=== PATIENT | female | born 1965 | race Two or more races ===

== ENCOUNTER 2021-03-02 23:40 | Emergency (ER) | payer MEDICAID ==
[~2021-03-02] VITALS: Ht 152.4 cm; Wt 98.9 kg
[2021-03-03 00:17] LABS: Basophils # (auto) 0.1 10 ^3/uL (0-0.2); Basophils % (auto) 0.9 % (0.0-2.0); Eosinophils # (auto) 0 10 ^3/uL (0-0.8); Eosinophils % (auto) 0.1 % (0.0-7.0); Hematocrit 36.2 % (36.0-46.0); Hemoglobin 12.1 g/dL (12.2-16.2); Lymphocytes # (auto) 1.2 10 ^3/uL (0.4-5.4); Lymphocytes % (auto) 17.4 % (10.0-50.0); Mean Corpuscular Hemoglobin 28.4 pg (28.0-32.0); Mean Corpuscular Hgb Conc. 33.3 g/dL (32.0-36.0); Mean Corpuscular Volume 85.3 fL (80.0-100.0); Monocytes # (auto) 0.2 10 ^3/uL (0-1.3); Monocytes % (auto) 3.6 % (0.0-12.0); Neutrophils # (auto) 5.3 10 ^3/uL (1.6-8.6); Nucleated Red Blood Cells % 0.1 %; Red Blood Cells 4.24 10^6/uL (4.0-5.20); Red Cell Distribution Width 13.8 % (11.8-14.3); White Blood Cell 6.8 10^3/uL (4.4-10.8)
[2021-03-03 00:31] LABS: Alanine Aminotransferase 23 U/L (13-56); Albumin 3.6 g/dL (3.4-5.0); Anion Gap 9 (5-15); Aspartate Aminotransferase 10 U/L (15-37); BUN/Creatinine Ratio 20.3; Blood Urea Nitrogen 16 mg/dL (7-18); Calcium 8.7 mg/dL (8.5-10.1); Carbon Dioxide 25 mmol/L (21-32); Chloride 104 mmol/L (98-107); GFR African American 97 mL/min; GFR Non-African American 80 mL/min; Glucose 179 mg/dL (74-106); Magnesium 2.2 mg/dL (1.6-2.6); Potassium 3.3 mmol/L (3.5-5.1); Sodium 138 mmol/L (136-145)
[2021-03-03 00:36] LABS: Alkaline Phosphatase 111 U/L (45-117); Bilirubin, Total 0.2 mg/dL (0.2-1.0)
[2021-03-03] MEDS ORDERED: KETOROLAC TROMETH 60MG/2ML VIAL IM ONE (05:30)
[2021-03-03 07:06] VITALS: BP 148/82
== END 2021-03-03 07:13 | disposition home or self-care (01) ==
LOC: ER 23:40
DX: R07.89 Other chest pain (principal); I11.0 Hypertensive heart disease with heart failure; I50.9 Heart failure, unspecified; J45.909 Unspecified asthma, uncomplicated; Z90.49 Acquired absence of other specified parts of digestive tract; Z90.89 Acquired absence of other organs
CPT/HCPCS: 36415; 71045; 80053; 83735; 83880; 84484; 85025; 85379; 93005

== ENCOUNTER → 2021-11-13 | Outpatient (CLI) | payer MEDICAID | END | disposition home or self-care (01) | LOC: XYW 15:22 | PROVIDERS: ATTEND Internal Medicine | DX: I07.1 Rheumatic tricuspid insufficiency (principal); I10 Essential (primary) hypertension | CPT/HCPCS: 93306 ==

== ENCOUNTER → 2021-11-27 | Outpatient (CLI) | payer MEDICAID ==
[~2021-11-27] VITALS: Ht 144.8 cm; Wt 99.3 kg
[~2021-11-27] MED LIST: ADENOSINE 83 MG in GIVE UN-DILUTED 0 ML IV STA
[2021-11-27 08:37] VITALS: BP 121/68
== END | disposition home or self-care (01) ==
LOC: XYW 07:07
PROVIDERS: ATTEND Internal Medicine
DX: R07.9 Chest pain, unspecified (principal); I10 Essential (primary) hypertension; E11.9 Type 2 diabetes mellitus without complications; M19.90 Unspecified osteoarthritis, unspecified site
CPT/HCPCS: 78452; 93017; A9500; J0153

== ENCOUNTER → 2021-12-24 | Outpatient (CLI) | payer MEDICAID ==
[2021-12-24 16:35] LABS: Urine Bacteria NONE SEEN /hpf (None Seen); Urine Blood Negative /uL (Negative); Urine Specific Gravity 1.007 (1.001-1.035); Urine WBC 4 /hpf (0 - 5)
== END | disposition home or self-care (01) ==
LOC: LAB 15:51
PROVIDERS: ATTEND Urology
DX: N32.81 Overactive bladder (principal)
CPT/HCPCS: 81001; 87086

== ENCOUNTER → 2022-03-04 | Outpatient (CLI) | payer MEDICAID ==
[~2022-03-04] MED LIST changes: -ADENOSINE 83 MG in GIVE UN-DILUTED 0 ML IV STA; +BACL10TA PO; +DICY10CA12 PO; +DILT30TA PO; +FLUT1SPR5; +GABA-339 PO; +HYDR25TA4 PO; +METF-370 PO; +METO-289 PO; +OME20T PO; +SOLI10TA7 PO; +SOLI5SUS PO; +TOPI100T68 PO
[2022-03-04 11:52] LABS: Basophils # (auto) 0 10 ^3/uL (0-0.2); Basophils % (auto) 0.8 % (0.0-2.0); Eosinophils # (auto) 0.1 10 ^3/uL (0-0.8); Eosinophils % (auto) 1.9 % (0.0-7.0); Hematocrit 38.4 % (36.0-46.0); Hemoglobin 12.1 g/dL (12.2-16.2); Lymphocytes # (auto) 1.3 10 ^3/uL (0.4-5.4); Lymphocytes % (auto) 27.7 % (10.0-50.0); Mean Corpuscular Hemoglobin 27.1 pg (28.0-32.0); Mean Corpuscular Hgb Conc. 31.6 g/dL (32.0-36.0); Mean Corpuscular Volume 85.8 fL (80.0-100.0); Monocytes # (auto) 0.5 10 ^3/uL (0-1.3); Monocytes % (auto) 9.9 % (0.0-12.0); Neutrophils # (auto) 2.9 10 ^3/uL (1.6-8.6); Neutrophils % (auto) 59.7 % (37.0-80.0); Red Blood Cells 4.47 10^6/uL (4.0-5.20); Red Cell Distribution Width 14.5 % (11.8-14.3); White Blood Cell 4.8 10^3/uL (4.4-10.8)
[2022-03-04 12:21] LABS: Albumin 3.9 g/dL (3.4-5.0); Calcium 9.2 mg/dL (8.5-10.1); Potassium 3.1 mmol/L (3.5-5.1)
[2022-03-04 12:24] LABS: BUN/Creatinine Ratio 10.2; INR 0.97 (0.9-1.15); Partial Thromboplastin Time 29.5 sec (24.6-33.4)
[2022-03-04 12:26] LABS: Bilirubin, Total 0.3 mg/dL (0.2-1.0); Total Protein 7.8 g/dL (6.4-8.2)
== END | disposition home or self-care (01) ==
LOC: LAB 10:28
PROVIDERS: ATTEND Internal Medicine
DX: R00.2 Palpitations (principal); I47.1 Supraventricular tachycardia; R06.2 Wheezing
CPT/HCPCS: 36415; 80053; 85025; 85610; 85730

== ENCOUNTER 2022-03-06 07:00 | Day surgery (SDC) | payer MEDICAID ==
[~2022-03-06] VITALS: Ht 152.4 cm; Wt 97.5 kg
[~2022-03-06 07:00] MED LIST changes: -SOLI5SUS PO
[2022-03-06] MEDS ORDERED: LIDOCAINE 2%HCL (LOCAL ANESTH.) INJ 10ml MDV ONE (07:40)
[2022-03-06] MEDS ORDERED: IODIXANOL 320MG/ML 100ML BTL IV ONE ×3 (07:40→08:55)
[2022-03-06] MEDS ORDERED: VERAPAMIL 2.5MG/ML INJ 2ML VIAL IV ONE (08:39)
[2022-03-06] MEDS ORDERED: ANGIOMAX 250 MG VIAL IV ONE (08:39)
[2022-03-06] MEDS ORDERED: HEPARIN SODIUM (PORCINE) 5000 UNITS/ML 1ML VIAL ONE (08:39)
[2022-03-06] MEDS ORDERED: MIDAZOLAM HCL 2MG/2ML 2ml VIAL (1mg/ml) ONE ×2 (08:40→09:20)
[2022-03-06] MEDS ORDERED: SODIUM CHL 0.9% 0 ML ONE (08:40)
[2022-03-06] MEDS ORDERED: fentaNYL CITRATE 100 MCG/2 ML VL ONE ×2 (08:40→09:19)
== END 2022-03-06 11:51 | disposition home or self-care (01) ==
LOC: CATH 07:00
PROVIDERS: ATTEND Internal Medicine
DX: R94.39 Abnormal result of other cardiovascular function study (principal); I25.10 Atherosclerotic heart disease of native coronary artery without angina pectoris; Z20.822 Contact with and (suspected) exposure to COVID-19
CPT/HCPCS: 93458; C1769; C1887; C1894; J1644; J2001; J2250; J3010; J7030; Q9967; U0003; 99152; 99153

== ENCOUNTER 2022-11-05 11:00 | Outpatient (CLI) | payer MEDICAID ==
[~2022-11-05 11:00] MED LIST changes: +SOLI10TA39 PO; -SOLI10TA7 PO
[2022-11-05 12:02] LABS: Basophils # (auto) 0 10 ^3/uL (0-0.2); Basophils % (auto) 0.7 % (0.0-2.0); Eosinophils # (auto) 0.1 10 ^3/uL (0-0.8); Eosinophils % (auto) 2.3 % (0.0-7.0); Hematocrit 35.9 % (36.0-46.0); Hemoglobin 11.9 g/dL (12.2-16.2); Lymphocytes # (auto) 1.4 10 ^3/uL (0.4-5.4); Lymphocytes % (auto) 31.3 % (10.0-50.0); Mean Corpuscular Hemoglobin 28.4 pg (28.0-32.0); Mean Corpuscular Hgb Conc. 33.1 g/dL (32.0-36.0); Mean Corpuscular Volume 85.8 fL (80.0-100.0); Monocytes # (auto) 0.4 10 ^3/uL (0-1.3); Monocytes % (auto) 9.5 % (0.0-12.0); Neutrophils # (auto) 2.5 10 ^3/uL (1.6-8.6); Neutrophils % (auto) 56.2 % (37.0-80.0); Red Blood Cells 4.18 10^6/uL (4.0-5.20); Red Cell Distribution Width 13.4 % (11.8-14.3); White Blood Cell 4.5 10^3/uL (4.4-10.8)
[2022-11-05 12:38] LABS: INR 0.93 (0.9-1.15); Partial Thromboplastin Time 27.9 sec (24.6-33.4)
[2022-11-05 13:05] LABS: BUN/Creatinine Ratio 31.4 (10.0-20.0)
[2022-11-05 13:06] LABS: Albumin 3.7 g/dL (3.4-5.0); Calcium 9.3 mg/dL (8.5-10.1)
[2022-11-05 13:09] LABS: Bilirubin, Total 0.2 mg/dL (0.2-1.0)
[2022-11-05 13:16] LABS: Potassium 2.9 mmol/L (3.5-5.1)
== END 2022-11-05 11:50 | disposition home or self-care (01) ==
LOC: LAB 11:00 → EDSTATUS 11-07 08:15
PROVIDERS: ATTEND Urology
DX: Z01.812 Encounter for preprocedural laboratory examination (principal); N39.3 Stress incontinence (female) (male)
CPT/HCPCS: 36415; 80053; 85025; 85610; 85730

== ENCOUNTER → 2022-11-15 | Outpatient (CLI) | payer MEDICAID ==
[~2022-11-15] MED LIST changes: -SOLI10TA39 PO; +SOLI10TA7 PO
[2022-11-15 09:24] LABS: Basophils # (auto) 0 10 ^3/uL (0-0.2); Basophils % (auto) 0.7 % (0.0-2.0); Eosinophils # (auto) 0.1 10 ^3/uL (0-0.8); Eosinophils % (auto) 3.1 % (0.0-7.0); Hemoglobin 11.8 g/dL (12.2-16.2); Lymphocytes # (auto) 1.1 10 ^3/uL (0.4-5.4); Lymphocytes % (auto) 32.2 % (10.0-50.0); Mean Corpuscular Hemoglobin 28.3 pg (28.0-32.0); Mean Corpuscular Hgb Conc. 32.7 g/dL (32.0-36.0); Mean Corpuscular Volume 86.8 fL (80.0-100.0); Monocytes # (auto) 0.4 10 ^3/uL (0-1.3); Monocytes % (auto) 12.4 % (0.0-12.0); Neutrophils # (auto) 1.8 10 ^3/uL (1.6-8.6); Neutrophils % (auto) 51.6 % (37.0-80.0); Nucleated Red Blood Cells % 0.2 %; Red Blood Cells 4.15 10^6/uL (4.0-5.20); Red Cell Distribution Width 13.6 % (11.8-14.3); White Blood Cell 3.5 10^3/uL (4.4-10.8)
== END | disposition home or self-care (01) ==
LOC: LAB 09:02
PROVIDERS: ATTEND Orthopaedic Surgery
DX: Z01.812 Encounter for preprocedural laboratory examination (principal)
CPT/HCPCS: 36415; 85025; 85652; 86141

== ENCOUNTER → 2023-11-06 | Outpatient (CLI) | payer MEDICAID ==
[~2023-11-06] MED LIST changes: +ADENOSINE 90 MG/30 ML INJ IV ONE; +DICY-89 PO; -DICY10CA12 PO; +SOLI10TA39 PO; -SOLI10TA7 PO
== END | disposition home or self-care (01) ==
LOC: Rad HDHVI 10:03
PROVIDERS: ATTEND Internal Medicine Cardiovascular Disease
DX: I08.1 Rheumatic disorders of both mitral and tricuspid valves (principal); I10 Essential (primary) hypertension
CPT/HCPCS: 93306

== ENCOUNTER → 2023-11-07 | Outpatient (CLI) | payer MEDICAID ==
[~2023-11-07] VITALS: Ht 152.4 cm; Wt 90.7 kg
[~2023-11-07] MED LIST changes: +ADENOSINE 76 MG in GIVE UN-DILUTED 0 ML IV ONE; -ADENOSINE 90 MG/30 ML INJ IV ONE; +ERY05OO OP; +ONDANSETRON HCL 4 MG/2 ML VIAL ONE
== END | disposition home or self-care (01) ==
LOC: Rad HDHVI 08:47
PROVIDERS: ATTEND Internal Medicine Cardiovascular Disease
DX: I10 Essential (primary) hypertension (principal); E11.42 Type 2 diabetes mellitus with diabetic polyneuropathy; R42 Dizziness and giddiness
CPT/HCPCS: 78452; 93005; 96374; 96375; A9500; J0153; J2405

== ENCOUNTER 2023-11-12 12:28 | Emergency (ER) | payer MEDICAID ==
[~2023-11-12] VITALS: Ht 152.4 cm; Wt 90.0 kg
[~2023-11-12 12:28] MED LIST changes: -ADENOSINE 76 MG in GIVE UN-DILUTED 0 ML IV ONE; -ERY05OO OP; -ONDANSETRON HCL 4 MG/2 ML VIAL ONE
[2023-11-12 13:13] VITALS: BP 154/84; PULSE 61; RESP 14; TEMP 97.9; O2SAT 99
[2023-11-12] MEDS: FLUORESCEIN SOD OPTH TEST STRIP LEFTEYE ONE (13:51)
[2023-11-12] MEDS ORDERED: ERY05OO OP (14:18)
== END 2023-11-12 14:38 | disposition home or self-care (01) ==
LOC: ER 12:28
DX: H57.8A2 Foreign body sensation, left eye (principal); I11.0 Hypertensive heart disease with heart failure; I50.9 Heart failure, unspecified; J45.909 Unspecified asthma, uncomplicated; Z90.49 Acquired absence of other specified parts of digestive tract

== ENCOUNTER 2023-12-29 18:12 | Emergency (ER) | payer MEDICAID ==
[~2023-12-29] VITALS: Ht 144.8 cm; Wt 88.8 kg
[~2023-12-29 18:12] MED LIST changes: +ERY05OO OP
[2023-12-29 18:43] LABS: Basophils # (auto) 0 10 ^3/uL (0-0.2); Basophils % (auto) 0.3 % (0.0-2.0); Eosinophils # (auto) 0 10 ^3/uL (0-0.8); Eosinophils % (auto) 0.3 % (0.0-7.0); Hematocrit 36.5 % (36.0-46.0); Lymphocytes # (auto) 1.7 10 ^3/uL (0.4-5.4); Lymphocytes % (auto) 28.1 % (10.0-50.0); Mean Corpuscular Hemoglobin 28.2 pg (28.0-32.0); Mean Corpuscular Volume 85.5 fL (80.0-100.0); Monocytes # (auto) 0.5 10 ^3/uL (0-1.3); Monocytes % (auto) 7.5 % (0.0-12.0); Neutrophils # (auto) 3.9 10 ^3/uL (1.6-8.6); Neutrophils % (auto) 63.8 % (37.0-80.0); Nucleated Red Blood Cells % 0.1 %; Red Blood Cells 4.26 10^6/uL (4.0-5.20); Red Cell Distribution Width 13.6 % (11.8-14.3); White Blood Cell 6.2 10^3/uL (4.4-10.8)
[2023-12-29 18:59] LABS: Partial Thromboplastin Time 26.2 SEC (24.5-34.5); Prothrombin Time 10.6 sec (9.3-11.8)
[2023-12-29 19:00] LABS: Alanine Aminotransferase 21 U/L (7-40); Albumin 4.5 g/dL (3.2-4.8); Alkaline Phosphatase 86 U/L (46-116); Anion Gap 8 (5-15); Aspartate Aminotransferase 9 U/L (13-40); BUN/Creatinine Ratio 14.3 (10.0-20.0); Blood Urea Nitrogen 15 mg/dL (9-23); Calcium 9.9 mg/dL (8.5-10.1); Carbon Dioxide 26 mmol/L (20-30); Chloride 105 mmol/L (98-107); Glucose 145 mg/dL (74-106); Potassium 3.6 mmol/L (3.5-5.1); Sodium 139 mmol/L (136-145)
[2023-12-29 19:01] LABS: Bilirubin, Total 0.3 mg/dL (0.2-1.0); Total Protein 7.2 g/dL (5.7-8.2)
[2023-12-29 20:05] LABS: Urine Bacteria None Seen /hpf (None Seen)
[2023-12-29 20:17] VITALS: BP 126/78; PULSE 74; RESP 16; O2SAT 98
[2023-12-29 20:39] LABS: Urine Blood Negative /uL (Negative); Urine Clarity Clear (Clear); Urine Color Colorless (Yellow); Urine Protein, UAD Negative (Negative); Urine Specific Gravity 1.006 (1.001-1.035); Urine Urobilinogen Normal (Negative); Urine WBC 1 /hpf (0 - 5); Urine pH 6.5 (5.0-9.0)
== END 2023-12-29 21:07 | disposition home or self-care (01) ==
LOC: ER 18:12
DX: R07.89 Other chest pain (principal); E78.5 Hyperlipidemia, unspecified; E11.9 Type 2 diabetes mellitus without complications; J45.909 Unspecified asthma, uncomplicated; I11.0 Hypertensive heart disease with heart failure; I50.9 Heart failure, unspecified; Z90.49 Acquired absence of other specified parts of digestive tract
CPT/HCPCS: 36415; 71045; 80053; 81001; 83880; 84484; 85025; 85379; 85610; 85730; 93005

== ENCOUNTER → 2024-03-10 | Outpatient (CLI) | payer MEDICAID ==
[2024-03-10 08:58] LABS: Urine Bacteria None Seen /hpf (None Seen)
[2024-03-10 09:13] LABS: Urine Amorphous Crystal FEW /hpf (None Seen); Urine Blood Negative /uL (Negative); Urine Clarity Turbid (Clear); Urine Color Colorless (Yellow); Urine Protein, UAD Negative (Negative); Urine Specific Gravity 1.015 (1.001-1.035); Urine Urobilinogen Normal (Negative); Urine WBC 2 /hpf (0 - 5); Urine pH 7.5 (5.0-9.0)
[2024-03-10 09:14] LABS: Basophils # (auto) 0 10 ^3/uL (0-0.2); Basophils % (auto) 0.8 % (0.0-2.0); Eosinophils # (auto) 0.2 10 ^3/uL (0-0.8); Eosinophils % (auto) 4.8 % (0.0-7.0); Hematocrit 36.1 % (36.0-46.0); Hemoglobin 11.9 g/dL (12.2-16.2); Lymphocytes # (auto) 1.2 10 ^3/uL (0.4-5.4); Lymphocytes % (auto) 30.9 % (10.0-50.0); Mean Corpuscular Hemoglobin 28.6 pg (28.0-32.0); Mean Corpuscular Hgb Conc. 32.9 g/dL (32.0-36.0); Monocytes # (auto) 0.4 10 ^3/uL (0-1.3); Monocytes % (auto) 11.1 % (0.0-12.0); Neutrophils # (auto) 2.1 10 ^3/uL (1.6-8.6); Neutrophils % (auto) 52.4 % (37.0-80.0); Platelet Count (auto) 331 10^3/uL (140-450); Red Blood Cells 4.15 10^6/uL (4.0-5.20); Red Cell Distribution Width 15.1 % (11.8-14.3); White Blood Cell 3.9 10^3/uL (4.4-10.8)
[2024-03-10 09:36] LABS: Creatinine, Urine 97.73 mg/dL (30.0-125.0)
[2024-03-10 09:38] LABS: Micro Albumin < 3.0 mg/L (<30.0)
[2024-03-10 09:39] LABS: Alanine Aminotransferase 19 U/L (7-40); Albumin 4.1 g/dL (3.2-4.8); Alkaline Phosphatase 85 U/L (46-116); Anion Gap 5 (5-15); Aspartate Aminotransferase 20 U/L (13-40); Blood Urea Nitrogen 7 mg/dL (9-23); Calcium 9.6 mg/dL (8.7-10.4); Carbon Dioxide 26 mmol/L (20-30); Chloride 109 mmol/L (98-107); Cholesterol 153 mg/dL (< 200); Glucose 87 mg/dL (74-106); HDL Cholesterol 55 mg/dL (40-59); LDL Cholesterol 77 mg/dL (< 100); Potassium 4.3 mmol/L (3.5-5.1); Sodium 140 mmol/L (136-145); Triglycerides 98 mg/dL (< 150)
[2024-03-10 09:40] LABS: Bilirubin, Total 0.5 mg/dL (0.2-1.0)
== END | disposition home or self-care (01) ==
LOC: LAB 08:44
PROVIDERS: ATTEND Student in an Organized Health Care Education/Training Program
DX: I10 Essential (primary) hypertension (principal); E11.9 Type 2 diabetes mellitus without complications
CPT/HCPCS: 36415; 80053; 80061; 81001; 82043; 82306; 82570; 83036; 84443; 85025

== ENCOUNTER → 2024-05-27 | Outpatient (CLI) | payer MEDICAID ==
[2024-05-27 06:27] LABS: Urine Bacteria None Seen /hpf (None Seen)
[2024-05-27 06:30] LABS: Basophils # (auto) 0 10 ^3/uL (0-0.2); Basophils % (auto) 0.5 % (0.0-2.0); Eosinophils # (auto) 0.2 10 ^3/uL (0-0.8); Eosinophils % (auto) 4.9 % (0.0-7.0); Hematocrit 37.4 % (36.0-46.0); Lymphocytes # (auto) 1.7 10 ^3/uL (0.4-5.4); Lymphocytes % (auto) 41.9 % (10.0-50.0); Mean Corpuscular Hemoglobin 28.4 pg (28.0-32.0); Mean Corpuscular Hgb Conc. 32.2 g/dL (32.0-36.0); Mean Corpuscular Volume 88.2 fL (80.0-100.0); Monocytes # (auto) 0.4 10 ^3/uL (0-1.3); Monocytes % (auto) 10.9 % (0.0-12.0); Neutrophils # (auto) 1.6 10 ^3/uL (1.6-8.6); Neutrophils % (auto) 41.8 % (37.0-80.0); Nucleated Red Blood Cells % 0.2 %; Platelet Count (auto) 316 10^3/uL (140-450); Red Blood Cells 4.24 10^6/uL (4.0-5.20); Red Cell Distribution Width 14.3 % (11.8-14.3); White Blood Cell 3.9 10^3/uL (4.4-10.8)
[2024-05-27 06:40] LABS: Urine Blood Negative /uL (Negative); Urine Clarity Clear (Clear); Urine Color Colorless (Yellow); Urine Protein, UAD Negative (Negative); Urine Specific Gravity 1.009 (1.001-1.035); Urine Urobilinogen Normal (Negative); Urine WBC <1 /hpf (0 - 5); Urine pH 6.5 (5.0-9.0)
[2024-05-27 06:52] LABS: Alanine Aminotransferase 17 U/L (7-40); Albumin 4.3 g/dL (3.2-4.8); Alkaline Phosphatase 84 U/L (46-116); Anion Gap 3 (5-15); Aspartate Aminotransferase 17 U/L (13-40); BUN/Creatinine Ratio 16.9 (10.0-20.0); Blood Urea Nitrogen 12 mg/dL (9-23); Calcium 9.4 mg/dL (8.7-10.4); Carbon Dioxide 29 mmol/L (20-31); Chloride 107 mmol/L (98-107); Glucose 85 mg/dL (74-106); Potassium 4.2 mmol/L (3.5-5.1); Sodium 139 mmol/L (136-145)
[2024-05-27 06:53] LABS: Bilirubin, Total 0.5 mg/dL (0.2-1.0)
== END | disposition home or self-care (01) ==
LOC: LAB 06:15
PROVIDERS: ATTEND Student in an Organized Health Care Education/Training Program
DX: E11.9 Type 2 diabetes mellitus without complications (principal); I10 Essential (primary) hypertension
CPT/HCPCS: 36415; 80053; 81001; 83036; 84443; 85025

== ENCOUNTER 2024-11-29 08:38 | Emergency (ER) | payer MEDICAID ==
[~2024-11-29] VITALS: Ht 152.4 cm; Wt 216.4 kg
--- NOTE | 2024-11-29 09:38 | ED.PDOC ---
GI ASSESSMENT HPI Comments 59 year old female presents to the ED with a chief complaint of abdominal pain onset 4 days. Patient states she has been experiencing LT flank pain as well as diffused abdominal pain for the past 4 days. She is a poor historian. States she ran into a wall 4 days, believes it can be cause of flank pain. PMHx PE, CHF, HTN, DM, arthritis. Denies shortness of breath, chest pain, nausea, vomiting, diarrhea, headache, dizziness, dysuria, hematuria. No other symptoms or modifying factors present at this time. Chief Complaint: Abdominal Pain Time Seen by MD: 09:13 Reviewed Notes: Medications, Allergies Allergies: Coded Allergies: NO KNOWN ALLERGIES (Unverified , 03/04/22) PER PATIENT Home Meds Active Scripts Erythromycin (Erythromycin) 5 Mg/Gm Oin, 1 APPLIC OP QID for 10 Days, #5 GRAMS 0 Refills Prov:MICHAEL AMAYA BROACHER 11/12/23 Reported Medications Solifenacin Succinate (Solifenacin Succinate) 10 Mg Tab, 10 MG PO DAILY for HYPERACTIVE BLADDER, TAB 03/04/22 Topiramate (Topiramate) 100 Mg Tab, 100 MG PO BID for MIGRAINE for 30 Days, MG 03/04/22 Omeprazole (Omeprazole) 20 Mg Cap, 40 MG PO DAILY, CAP 03/04/22 Metoprolol Succinate (Metoprolol Succinate Er) 50 Mg Tab, 50 MG PO DAILY for 30 Days, MG 03/04/22 Metformin Hydrochloride (Metformin Hcl) 500 Mg Tab, 500 MG PO DAILY for 30 Days, MG 03/04/22 Hydrochlorothiazide (Hydrochlorothiazide) 25 Mg Tab, 50 MG PO DAILY, MG 03/04/22 Gabapentin (Gabapentin) 600 Mg Tab, 600 MG PO TID, MG 03/04/22 Fluticasone Propionate (Nasal) (Flonase Allergy Relief) 50 Mcg/Act Spr, 50 MCG NA DAILY, SPRAY 03/04/22 Diltiazem Hcl (Diltiazem Hcl) 30 Mg Tab, 30 MG PO BID, MG 03/04/22 Dicyclomine Hcl (Dicyclomine Hcl) 10 Mg Cap, 10 MG PO TIDP PRN for ABDOMINAL CRAMPS, MG 03/04/22 Baclofen (Baclofen) 10 Mg Tab, 10 MG PO DAILYP PRN for BREAKTHROUGH PAIN, MG 03/04/22 Information Source: Patient Mode of Arrival: Ambulatory Timing: Days Duration: Since onset Prehospital treatment: None Quality: Sharp Vomitus: None Severity: Moderate Recent: None Recent Hx of: None Pain Location: Diffuse Modifying Factors: Nothing Associated sign and symptoms: Abdominal Pain Past Medical History PAST MEDICAL HISTORY: Arthritis, Asthma, CHF, DM, High Lipids, HTN, PE Surgical History: Appendectomy, Cholecystectomy 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 Family History Family History: Reviewed,noncontributory to illness Social History Smoker: Non-Smoker Alcohol: Denies ETOH Use Drugs: Denies Drug Use Lives In: Home Constitutional: denies: chills, diaphoresis, fatigue, fever, malaise, sweats, weakness, others EENTM: denies: blurred vision, double vision, ear bleeding, ear discharge, ear drainage, ear pain, ear ringing, eye pain, eye redness, hearing loss, mouth pain, mouth swelling, nasal discharge, nose bleeding, nose congestion, nose pain, photophobia, tearing, throat pain, throat swelling, voice changes, others Respiratory: denies: cough, hemoptysis, orthopnea, SOB at rest, shortness of breath, SOB with excertion, stridor, wheezing, others Cardiovascular: denies: chest pain, dizzy spells, diaphoresis, Dyspnea on exertion, edema, irregular heart beat, left arm pain, lightheadedness, palpitations, PND, syncope, others Gastrointestinal: reports: abdominal pain; denies: abdomen distended, blood streaked bowels, constipated, diarrhea, dysphagia, difficulty swallowing, hematemesis, melena, nausea, poor appetite, poor fluid intake, rectal bleeding, rectal pain, vomiting, others Genitourinary: reports: flank pain (LT); denies: abnormal vagina bleeding, burning, dyspareunia, dysuria, frequency, hematuria, incontinence, pain, , vagina discharge, urgency, others Neurological: denies: dizziness, fainting, headache, left sided numbness, left sided weakness, numbness, paresthesia, pre-existing deficit, right sided numbness, right sided weakness, seizure, speech problems, tingling, tremors, weakness, others Musculoskeletal: denies: back pain, gout, joint pain, joint swelling, muscle pain, muscle stiffness, neck pain, others Integumetry: denies: bruises, change in color, change in hair/nails, dryness, laceration, lesions, lumps, rash, wounds, others Allergic/Immunocompromised: denies: Difficulty Healing, Frequent Infections, Hives, Itching, others Hematologic/Lymphatic: denies: anemia, blood clots, easy bleeding, easy bruising, swollen glands, others Endocrine: denies: excessive hunger, excessive sweating, excessive thirst, excessive urination, flushing, intolerance to cold, intolerance to heat, unexplained weight gain, unexplained weight loss, others Psychiatric: denies: anxiety, bipolar disorder, depression, hopeless, panic disorder, schizophrenia, sleepless, suicidal, others All Other Systems: Reviewed and Negative Physical Exam General Appearance: Moderate Distress, Normal HEENT: Normal ENT Inspection, Pharynx Normal, TMs Normal Neck: Full Range of Motion, Non-Tender, Normal, Normal Inspection Respiratory: Chest Non-Tender, Lungs Clear, No Accessory Muscle Use, No Respiratory Distress, Normal Breath Sounds Cardiovascular: No Edema, No JVD, No Murmur, No Gallop, Normal Peripheral Pulses, Regular Rate/Rhythm Breast Exam: Deferred Gastrointestinal: No Organomegaly, Non Tender, No Pulsatile Mass, Normal Bowel Sounds, Soft Genitalia: Deferred Pelvic: Deferred Rectal: Deferred Extremities: No calf tenderness, Normal capillary refill, Normal inspection, Normal range of motion, Non-tender, No pedal edema Musculoskeletal : Apperance: Normal Neurologic: Alert, clay roaster II-XII nml as Tested, No Motor Deficits, Normal Affect, Normal Mood, No Sensory Deficits Cerebellar Function: Normal Reflexes: Normal Skin: Dry, Normal Color, Warm Peripheral Pulses: 3+ Radial (R), 3+ Radial (L) Lymphatic: No Adenopathy Was a procedure done? Was a procedure done?: No GI differential Dx Differential Diagnosis: Constipation, Diverticular disease, Esophagitis, Gastritis/PUD, Gastroenteritis X-Ray, Labs, Meds, VS Vital Signs Date Time Temp Pulse Resp B/P (MAP) Pulse Ox O2 Delivery O2 Flow Rate FiO2 11/29/24 11:24 98.7 75 16 134/70 (91) 98 98.7 11/29/24 09:45 82 20 98 Room Air* 0 21 11/29/24 09:45 98.5 82 20 148/39 (75) 98 98.5 11/29/24 08:58 Room Air 0 11/29/24 08:58 90 11/29/24 08:58 97.5 91 20 156/87 (110) 94 97.5 Lab Test 11/29/24 10:13 11/29/24 09:59 Range/Units White Blood Count 3.9 L 4.4-10.8 10^3/uL Red Blood Count 4.24 4.0-5.20 10^6/uL Hemoglobin 11.7 L 12.2-16.2 g/dL Hematocrit 35.9 L 36.0-46.0 % Mean Corpuscular Volume 84.5 80.0-100.0 fL Mean Corpuscular Hemoglobin 27.5 L 28.0-32.0 pg Mean Corpuscular Hemoglobin Concent 32.5 32.0-36.0 g/dL Red Cell Distribution Width 13.9 11.8-14.3 % Platelet Count 321 140-450 10^3/uL Mean Platelet Volume 7.3 6.9-10.8 fL Neutrophils (%) (Auto) 59.9 37.0-80.0 % Lymphocytes (%) (Auto) 26.7 10.0-50.0 % Monocytes (%) (Auto) 9.9 0.0-12.0 % Eosinophils (%) (Auto) 2.9 0.0-7.0 % Basophils (%) (Auto) 0.6 0.0-2.0 % Neutrophils # (Auto) 2.3 1.6-8.6 10 ^3/uL Lymphocytes # (Auto) 1.0 0.4-5.4 10 ^3/uL Monocytes # (Auto) 0.4 0-1.3 10 ^3/uL Eosinophils # (Auto) 0.1 0-0.8 10 ^3/uL Basophils # (Auto) 0 0-0.2 10 ^3/uL Nucleated Red Blood Cells 0.0 % Sodium Level 142 136-145 mmol/L Potassium Level 3.8 3.5-5.1 mmol/L Chloride Level 109 H 98-107 mmol/L Carbon Dioxide Level 25 20-31 mmol/L Anion Gap 8 5-15 Blood Urea Nitrogen 9 9-23 mg/dL Creatinine 0.68 0.550-1.02 mg/dL Glomerular Filtration Rate Calc 100 >90 mL/min BUN/Creatinine Ratio 13.2 10.0-20.0 Serum Glucose 93 74-106 mg/dL Calcium Level 9.4 8.7-10.4 mg/dL Urine Color Light-yellow Yellow Urine Clarity Clear Clear Urine pH 7.5 5.0-9.0 Urine Specific [place] 1.012 1.001-1.035 Urine Protein Negative Negative Urine Ketones Negative Negative Urine Blood Negative Negative /uL Urine Nitrite Negative Negative Urine Bilirubin Negative Negative Urine Urobilinogen Normal Negative mg/dL Urine Leukocyte Esterase Negative Negative /uL Urine RBC <1 0 - 4 /hpf Urine Microscopic WBC < 1 0-5 /HPF Urine Squamous Epithelial Cells None seen <5 /hpf Urine Bacteria None seen None Seen /hpf Urine Glucose Normal Normal mg/dL Patient alert. Complaining of generalized symptoms. Abdomen is soft nontender. Vitals stable. Ambulating. Chronic condition. Possible gastritis. Kidney function within normal limits. Urinalysis within normal limits. Mild anemia. Blood pressure better controlled. No sign of any sepsis. No sign of any acute pathology. Physical examination pristine. Possible gastritis. Was given prescription of Protonix. Explained to the patient. Was told to follow up with her primary care physician. Was told to come back if there is any problem. Time of 1ST Reevaluation: 09:43 Reevaluation 1ST: Improved Patient Education/Counseling: Diagnosis, Treatment, Prognosis Family Education/Counseling: No Family Present Departure 1 Departure Time of Disposition: 11:42 Impression: Primary Impression: Gastritis Qualified Codes: K29.00 - Acute gastritis without bleeding Additional Impression: Anemia Qualified Codes: D64.9 - Anemia, unspecified Disposition: 01 HOME / SELF CARE / HOMELESS Condition: Good e-Prescriptions Pantoprazole Sodium Sesquihydr (Protonix) 40 Mg Tab 40 MG PO DAILY for 5 Days, #5 TAB Prov: JOSE WONG MD 11/29/24 Discharged With: Self Critical Care Note Critical Care Time?: No Stability Stability form required: No Heart Score Heart Score: Heart Score Response (Comments) Value History N/A 0 EKG N/A 0 Age N/A 0 Risk Factors N/A 0 Troponin N/A 0 Total 0 I personally scribed for JOSE WONG MD ([email or web address]) on 11/29/24 at 09:38. Electronically submitted by Bethany Aguilar ([email or web address]). JOSE WONG MD November 29, 2024 09:38
[2024-11-29 09:45] VITALS: PULSE 82; RESP 20; O2SAT 98
[2024-11-29 10:18] LABS: Urine Bacteria None Seen /hpf (None Seen); Urine Blood Negative /uL (Negative); Urine Clarity Clear (Clear); Urine Color Light-Yellow (Yellow); Urine Protein, UAD Negative (Negative); Urine Specific Gravity 1.012 (1.001-1.035); Urine Squamous Epithelial Cell None Seen /hpf (<5); Urine Urobilinogen Normal (Negative); Urine WBC < 1 /HPF (0-5); Urine pH 7.5 (5.0-9.0)
[2024-11-29 10:41] LABS: Basophils # (auto) 0 10 ^3/uL (0-0.2); Basophils % (auto) 0.6 % (0.0-2.0); Eosinophils # (auto) 0.1 10 ^3/uL (0-0.8); Eosinophils % (auto) 2.9 % (0.0-7.0); Hematocrit 35.9 % (36.0-46.0); Hemoglobin 11.7 g/dL (12.2-16.2); Lymphocytes % (auto) 26.7 % (10.0-50.0); Mean Corpuscular Hemoglobin 27.5 pg (28.0-32.0); Mean Corpuscular Hgb Conc. 32.5 g/dL (32.0-36.0); Mean Corpuscular Volume 84.5 fL (80.0-100.0); Monocytes # (auto) 0.4 10 ^3/uL (0-1.3); Monocytes % (auto) 9.9 % (0.0-12.0); Neutrophils # (auto) 2.3 10 ^3/uL (1.6-8.6); Neutrophils % (auto) 59.9 % (37.0-80.0); Platelet Count (auto) 321 10^3/uL (140-450); Red Blood Cells 4.24 10^6/uL (4.0-5.20); Red Cell Distribution Width 13.9 % (11.8-14.3); White Blood Cell 3.9 10^3/uL (4.4-10.8)
[2024-11-29 10:46] LABS: Potassium 3.8 mmol/L (3.5-5.1); Sodium 142 mmol/L (136-145)
[2024-11-29 10:47] LABS: Anion Gap 8 (5-15); Carbon Dioxide 25 mmol/L (20-31)
[2024-11-29 10:48] LABS: Calcium 9.4 mg/dL (8.7-10.4)
[2024-11-29 10:53] LABS: BUN/Creatinine Ratio 13.2 (10.0-20.0); Blood Urea Nitrogen 9 mg/dL (9-23); Chloride 109 mmol/L (98-107); Glucose 93 mg/dL (74-106)
[2024-11-29 11:24] VITALS: BP 134/70; PULSE 75; RESP 16; TEMP 98.7; O2SAT 98
[2024-11-29] MEDS ORDERED: PANT40TA2 PO (11:44)
--- NOTE | 2024-11-30 08:59 | ECG ---
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
== END 2024-11-29 12:09 | disposition home or self-care (01) ==
LOC: ER 08:38
DX: K29.70 Gastritis, unspecified, without bleeding (principal); D64.9 Anemia, unspecified; M19.90 Unspecified osteoarthritis, unspecified site; J45.909 Unspecified asthma, uncomplicated; I11.0 Hypertensive heart disease with heart failure; I50.9 Heart failure, unspecified; E11.9 Type 2 diabetes mellitus without complications; Z90.49 Acquired absence of other specified parts of digestive tract; Z79.899 Other long term (current) drug therapy
CPT/HCPCS: 36415; 80048; 81001; 85025; 93005